=== PATIENT | male | born 1940 | race Caucasian/White ===

== ENCOUNTER 2020-08-20 05:13 | Inpatient (IN) ==
--- NOTE | 2020-07-16 12:11 | PAT Medication Instructions ---
Medication Instructions Date of Service July 16, 2020 Home Medications aspirin 81 mg PO QAM cholecalciferol (vitamin D3) [Vitamin D3] 25 mcg PO QAM enalapril maleate 10 mg PO QAM ASK your prescriber and surgeon aspirin 81 mg PO QAM DO NOT take the morning of surgery cholecalciferol (vitamin D3) [Vitamin D3] 25 mcg PO QAM enalapril maleate 10 mg PO QAM Other Notes If you have any questions please call us at [phone] or [phone] or [phone] or [phone]
--- NOTE | 2020-07-20 11:04 | Anesthesiology Consultation ---
Date of Service July 20, 2020 Assessment & Plan (1) Encounter for pre-operative examination: COVID screening: Per assessment on 07/20: Travel screen negative, no known COVID- 19 positive contacts or current COVID-19 related symptoms. Patient vaccinated. Surgeon arranging preop COVID testing (scheduled 08/18; [facility]). Awaiting results. Chart Review Chart Review: Acceptable Risk for Surgery and Patient seen in Pre Admission Testing Teaching & Discussion Pre-Anesthesia Teaching/Discussion Notes: Instructed NPO after midnight before surgery,except medications with 15 cc of water. Medication instructions provided according to the PAT guidelines. History Surgery Operation Date: 08/20/20 07:00 Proposed Procedures p Right Total Shoulder Arthroplasty Belle - Fredo Reaves M.D. Height/Weight Height: 5 ft 8 in Weight: 67.6 kg Allergies Allergy/AdvReac Type Severity Reaction Status Date / Time No Known Allergies Allergy Unverified 07/13/20 13:25 Medications Home Medications Medication Instructions Recorded Confirmed Last Taken aspirin 81 mg PO QAM 07/13/20 07/13/20 Unknown cholecalciferol (vitamin D3) 25 mcg PO QAM 07/13/20 07/13/20 Unknown [Vitamin D3] enalapril maleate 10 mg PO QAM 07/13/20 07/13/20 Unknown Past Medical History Medical History BPH with obstruction/lower urinary tract symptoms Hypertension Osteoarthritis Exercise / Class Metabolic Activity II 4-5 Yardwork/Stairs/Walk up hill (one flight of stairs (no chest pain, no sob)) Past Surgical History Surgical History History of left inguinal hernia left inguinal hernia repair History of total right hip arthroplasty and revision Hx of arthroscopy of left knee Hx of bilateral cataract extraction Hx of colonoscopy Past Anesthesia History No Hx of Anesthesia Complications and No Family Hx of Anesthesia Complications History of PONV No Hx of PONV and No Hx of Motion Sickness Social History Smoking Status: Never smoker Do You Dip or Chew Tobacco: No Hx Alcohol Use: Yes Alcohol type: beer alcohol intake frequency: a few times a month Hx Substance Use: No substance use type: does not use Review of Systems No snoring. Patient denies chest pain, shortness of breath, dyspnea on exertion, fever, chills, cough, wheezing, palpitations. Physical Exam Vital Signs VITALS BP 124/73 P 65 TEMP 98.7 SP02 95%RA RESP 16 PHYSICAL Full cervical extension range of motion. Full TMJ range of motion. TMD 4 finger breaths Mallampati Score 3 Dentition: upper/lower full dentures Lungs: clear throughout to auscultation Cardiac: regular rate and rhythm, I/ systolic murmur Spine: normal Carotid arteries: negative bruit Extremities: no edema Lab Results Anesthesia Preop Results Results Anesthesia Widget: WBC 4.87 K/uL (4.8-10.8) 07/20/20 Hgb 14.6 g/dL (14.0-18.0) 07/20/20 Hct 42.8 % (42-52) 07/20/20 Plt 172 K/uL (130-400) 07/20/20 Na 140 mmol/L (136-145) 07/20/20 K 4.2 mmol/L (3.5-5.1) 07/20/20 Cl 109 mmol/L (98-107) H 07/20/20 CO2 24 mmol/L (21-32) 07/20/20 BUN 18 mg/dl (7-18) 07/20/20 Creat 0.82 mg/dl (0.6-1.4) 07/20/20 Glucose Level 86 mg/dl (70-99) 07/20/20 PT 10.3 Seconds (9.0-12.0) 07/20/20 PTT 28.1 Seconds (21.0-31.0) 07/20/20 INR 1.0 (0.9-1.1) 07/20/20 HA1c 5.3 % (4.5-5.6) 07/20/20 Urine Color Yellow 07/20/20 Urine Appearance Cloudy (Clear) A 07/20/20 Urine pH 5.0 (4.5-7.5) 07/20/20 Urine Specific [place] 1.020 (1.000-1.030) 07/20/20 Urine Protein Negative (Negative) 07/20/20 Urine Glucose (UA) Negative (Negative) 07/20/20 Urine Ketones Negative (Negative) 07/20/20 Urine Blood Negative (Negative) 07/20/20 Urine Nitrite Negative (Negative) 07/20/20 Urine Bilirubin Negative (Negative) 07/20/20 Urine Urobilinogen Negative (Negative) 07/20/20 Urine Leukocyte Esterase 1+ (Negative) H 07/20/20 Urine WBC (Auto) 1-5 /hpf (0-5) 07/20/20 Urine RBC (Auto) 0-4 /hpf (0-4) 07/20/20 Urine Hyaline Casts (Auto) 1-5 /lpf (0-5) 07/20/20 Urine Epithelial Cells (Auto) 10-20 /lpf (0-5) H 07/20/20 Urine Bacteria (Auto) Negative (Negative) 07/20/20 Blood Type B Positive 07/20/20 Antibody Screen NEGATIVE 07/20/20 Testing Electrocardiogram Date: 07/20/20 Sinus bradycardia at 57 bpm. LAD. No significant change compared to 05/15/2014 per it administrator review. Chest X-Ray Date: 07/20/20 FINDINGS: Lung volumes are normal. Lungs are clear. There is no pneumothorax or pleural effusion. Cardiac size is normal. Mediastinal contours are normal. There is no evidence for pulmonary edema. IMPRESSION: No acute cardiopulmonary findings.
--- NOTE | 2020-08-19 08:01 | History & Physical Report ---
Date of Service August 19, 2020 Assessment & Plan (1) Primary osteoarthritis, right shoulder: He again has severe right shoulder glenohumeral joint arthritis. On x- ray, this does look like primary glenohumeral joint arthritis. However, he has a large full-thickness supraspinatus rotator cuff tear with retraction to the glenoid rim and fatty atrophy. He therefore will require a reverse total shoulder arthroplasty if he decides to proceed with this. We again discussed further conservative treatment with repeat steroid injections; these have been minimally effective for him in the recent past. He would like to proceed with shoulder joint replacement, and I think this is very reasonable. We will plan for a reverse total shoulder arthroplasty. Risks, benefits, and alternatives of surgery were explained in detail. The surgical procedure, as well as postoperative recovery and rehabilitation, was also explained in detail. Risks include bleeding; infection; damage to surrounding structures such as nerves, blood vessels, and tendons that run in the area; persistent pain or stiffness; hardware failure; dislocation; brachial plexus palsy; blood clots; or need for further surgery. The patient understands all of this and wishes to proceed with surgery. Preoperative workup was completed today, and informed consent was obtained. History of Present Illness Primary Care Provider: Diallo Atwood MD Mr. Gutiérrez returns today for his right shoulder. Again, he is a 80-year-old [id number] male with chronic right shoulder pain. He was referred over from Dr. Ramos's team. He had previously seen Dr. Duval for this right shoulder prior to that. Multiple previous clinic notes from these providers were reviewed. He reports overall that he has had about 5 years of right shoulder pain with progressive worsening. He previously had a right shoulder steroid injection by Dr. Duval about 4 years ago that worked very well. He then had 2 more recent injections from [facility], one in October 2019 and one more recently on April 09, 2020. He reports that neither 1 of these last 2 injections gave him any relief of his pain. This pain is now waking him up at night. It is severely impacting his activities of daily living. He has severe pain and some weakness with any attempts at motion or abduction of the shoulder. Allergies Allergy/AdvReac Type Severity Reaction Status Date / Time No Known Allergies Allergy Unverified 07/13/20 13:25 Home Medications Medication Instructions Recorded Confirmed Type aspirin 81 mg tablet 81 mg PO QAM 07/13/20 07/13/20 History cholecalciferol (vitamin D3) 25 25 mcg PO QAM 07/13/20 07/13/20 History mcg (1,000 unit) tablet (Vitamin D3) enalapril maleate 10 mg tablet 10 mg PO QAM 07/13/20 07/13/20 History Past Med/Surg History Medical History BPH with obstruction/lower urinary tract symptoms Hypertension Osteoarthritis Surgical History History of left inguinal hernia left inguinal hernia repair History of total right hip arthroplasty and revision Hx of arthroscopy of left knee Hx of bilateral cataract extraction Hx of colonoscopy Social History Smoking Status: Never smoker Second Hand Exposure: No; Hx Alcohol Use: Yes Alcohol type: beer Hx Substance Use: No Preferred Language: Italian Communication Ability: Effective Etiquette Coach Required: No Beliefs That Will Affect Care: None Current Living Situation: Spouse Feels Safe at Home: Yes Assistive Devices: Denture - Upper, Glasses and Hearing Aid - Left Physical Exam Physical Exam: Examination of the right shoulder shows moderate limitation in shoulder range of motion due to pain, with palpable crepitus during motion. He can only actively abduct up to about 95 degrees at this point. Rotator cuff strength is globally weak. Results & Data ([facility]) Diagnostic Findings Previous x-rays of the right shoulder from September 2019 and April 2020 were reviewed. They shows severe arthritic degeneration of the glenohumeral joint with basically complete obliteration of the joint space. It shows progressive worsening from the September 2019 to the April 2020 x-rays. There is significant posterior wear of the glenoid. They are also concerning for some proximal migration of the humeral head. New MRI of the right shoulder from this morning was reviewed. It shows a full- thickness supraspinatus rotator cuff tear with retraction of the tendon edge to the glenoid rim. There is moderate atrophy of the supraspinatus muscle belly. Again noted is severe glenohumeral joint arthritis.
[2020-08-20] MEDS ORDERED: GABAPENTIN 300 MG CAP PO SCH (06:00)
[2020-08-20] MEDS ORDERED: CeleBREX 200 MG CAP PO SCH (06:00)
[2020-08-20] MEDS ORDERED: FAMOTIDINE 20 MG TAB PO SCH (06:00)
[2020-08-20] MEDS ORDERED: LR 15ML/HR IV SCH (06:00)
[2020-08-20] MEDS ORDERED: oxyCODONE HCL 10 MG TABCR (OxyCONTIN) PO SCH (06:00)
[2020-08-20] MEDS ORDERED: TRANEXAMIC ACID 1,000 MG **IV Pre-op IV SCH (06:00)
[2020-08-20] MEDS ORDERED: ACETAMINOPHEN 500 MG TAB PO SCH (06:00)
[2020-08-20] MEDS ORDERED: METOCLOPRAMIDE HCL 10 MG TABLET PO SCH (06:00)
[2020-08-20] MEDS ORDERED: ceFAZolin 1000MG 1,000 MG/7.5 ML SYR IV SCH (06:00)
[2020-08-20] MEDS ORDERED: BUPIVACAINE 0.5 % 5 MG/1 ML PF 10ML VIAL ONE (06:21)
[2020-08-20] MEDS ORDERED: fentaNYL citrate 100 MCG/2 ML VIAL ONE (06:36)
[2020-08-20] MEDS ORDERED: ONDANSETRON INJ 2 MG/ML 2 ML VIAL ONE (06:36)
[2020-08-20] MEDS ORDERED: PROPOFOL IV EMULSION 10 MG/ML 20 ML VIAL IV ONE (06:36)
[2020-08-20] MEDS ORDERED: MIDAZOLAM HCL 1 MG/ML 2ML VIAL ONE (06:36)
[2020-08-20] MEDS ORDERED: LIDOCAINE 2% 2 ML VIAL/AMP(20MG/ML) INFIL ONE (06:36)
[2020-08-20] MEDS ORDERED: DEXAMETHASONE SOD INJ 4 MG/ML VIAL ONE (06:36)
--- NOTE | 2020-08-20 07:00 | History & Physical Bridge Note ---
Date of Service August 20, 2020 History & Physical Bridge Note I have examined the patient, reviewed the History & Physical and in the interval since the performance of the History & Physical I have noted the following changes of clinical significance: no changes noted
[2020-08-20] MEDS ORDERED: fentaNYL citrate 100 MCG/2 ML VIAL IV PRN (07:05)
[2020-08-20] MEDS ORDERED: ePHEDrine sulfate 50 MG/ML AMP IV PRN (07:05)
[2020-08-20] MEDS ORDERED: ATROPINE SULFATE 0.1 MG/ML 10ML SYR IV PRN (07:05)
[2020-08-20] MEDS ORDERED: HYDROmorphone INJ 2 MG/ML SYR/VIAL IV PRN (07:05)
[2020-08-20] MEDS ORDERED: ceFAZolin 1000MG 1,000 MG/7.5 ML SYR IV ONE (07:55)
[2020-08-20] MEDS ORDERED: PHENYLEPHRINE 100MCG/ML 5ML SYR ONE (07:59)
[2020-08-20] MEDS ORDERED: ePHEDrine sulfate 50 MG/ML SYR ONE (07:59)
--- NOTE | 2020-08-20 08:58 | Post Operative Brief Note ---
Immediate Post Op Note v1 Date of Surgery August 20, 2020 Pre & Post Diagnosis Operation Date: 08/20/20 07:00 Pre-Op Diagnosis: Right shoulder osteoarthrits with rotator cuff tear Post-Op Diagnosis: Right shoulder osteoarthrits with rotator cuff tear I identified the patient and participated in the time-out.: Yes Procedure Operation Date: 08/20/20 07:00 Actual Procedures Right reverse total shoulder arthroplasty - Fredo Reaves M.D. Surgeon Fredo Reaves Group Worker Michael Arias PA-C Estimated Blood Loss 100 Findings Consistent with Post-Op Diagnosis
--- NOTE | 2020-08-20 09:11 | Operative Report ---
Post Operative Report Pre & Post Diagnosis Operation Date: 08/20/20 07:00 Pre-Op Diagnosis: Right shoulder osteoarthritis with rotator cuff tear Post-Op Diagnosis: Right shoulder osteoarthritis with rotator cuff tear I identified the patient and participated in the time-out.: Yes Procedure Operation Date: 08/20/20 07:00 Actual Procedures Right reverse total shoulder arthroplasty (42022) - Fredo Reaves M.D. Surgeon Fredo Reaves Proof Sorter Michael Arias PA-C Estimated Blood Loss 100 Findings Consistent with Post-Op Diagnosis Specimens None Drains None Anesthesia Type General Regional Complications none Disposition Disposition: Recovery Room Indications Mr. Gutiérrez is a 80-year-old male with severe right shoulder pain and weakness for many years. History, clinical exam, and imaging were consistent with the above diagnosis. Risks, benefits, and alternatives of surgery were explained in detail. The patient understood all this and wished to proceed. Description of Procedure Components Implanted: Tornier Reverse Total Shoulder implants Perform glenoid baseplate: 29mm, 15 degree full wedge with 6.5mm central screw and 5.0mm peripheral screws Glenosphere: 39mm, +3mm, eccentric offset Ascend Flex humeral stem: 6B Standard length (86mm) Humeral tray: 1.5mm offset, +0mm thickness Polyethylene insert: 39mm, +6mm thickness Patient was identified in the preoperative holding area. Operative extremity was marked. Regional blockade was given by the Anesthesia Staff. Patient was then brought back to the operating room, and general anesthesia was induced without complication. Appropriate weight-based dose of Ancef was infused intravenously for antibiotic prophylaxis. The patient was then placed in the b eachchair position. Right arm was then prepped and draped in a standard sterile fashion using Chlorhexidine prep. A standard deltopectoral incision was made through the skin and subcutaneous tissue. The cephalic vein was identified and retracted medially. Small branches to the deltoid were coagulated as necessary. The clavipectoral fascia was then incised and the subdeltoid space was opened. The rotator cuff was found to be deficient, and I therefore decided to perform a reverse total shoulder arthroplasty as planned preoperatively. The biceps tendon was not identified within the bicipital groove, and appeared to have ruptured preoperatively. The remaining subscapularis tendon was elevated subperiosteally off of the lesser tuberosity. The glenohumeral joint was then dislocated, and large osteophytes were debrided with a ronguer. The humeral head cut was then made in the appropriate inclination and version using the cutting guide. The intramedullary canal of the humerus was then opened with a canal finder. The humeral canal was then sequentially broached to the appropriate size. A protective cap was then placed on top of the humeral trial. I then turned my attention to the glenoid. The labrum was excised circumferentially around the glenoid. The Blueprint drill guide was then positioned on the glenoid, and the guidepin was then inserted. The 15 degree angled reamer was then inserted over the guidepin and an reamed to an appropriate depth. The central screw hole was drilled, and appropriate length 6.5mm central screw was selected. The baseplate was then implanted into place according to our preoperative Blueprint plan by tightening down the central screw. A peripheral 5mm nonlocking screw was placed superiorly first for additional compression of the baseplate, and then additional locking 5 mm peripheral screws were placed to complete fixation of the baseplate. Glenosphere was then impacted and secured. A trial humeral tray and insert were placed on the trial humeral stem, and a trial reduction was carried out. Once I achieved acceptable joint stability and range of motion with the trial implants, the final humeral implants were assembled on the back table and then impacted into position. I then took the shoulder through full range of motion to ensure good stability and acceptable motion. Wound was then copiously irrigated with sterile saline. Deep fascia was closed with 0 V-lock suture. Subcutaneous tissue was closed with 2-0 V-lock, and skin was closed with 3-0 V-lock. Skin was then sealed with Dermabond. Sterile dressings were then applied with a waterproof silver-impregnated dressing, and the arm was placed into a sling. The patient was awakened from anesthesia and taken to the Post Anesthesia Care Unit in stable condition. There were no immediate complications from the procedure. I was present and scrubbed for the entire procedure, with the exception of final skin closure and dressing application. Due to the complex nature of the procedure, the entire surgery was performed with the operational assistance of Michael Arias PA-C. The sales service assistant, under direct supervision, was involved in the performance of all aspects of the surgical procedure including patient positioning, tissue retraction, hemostasis, wound closure, and dressing application. I attest to the content of the Intraoperative Record and any orders documented therein. Any exceptions are noted below.
--- NOTE | 2020-08-20 09:46 | XRay Report ---
XR shoulder RT min 2V routine CLINICAL HISTORY: Post shoulder surgery COMPARISON: None FINDINGS: Alignment of the total right shoulder arthroplasty is anatomic. There is no definite perip rosthetic fracture. Lucency adjacent to the distal aspect of the humeral component is noted. There ar e no unexpected radiopaque foreign bodies. Hardware is intact. IMPRESSION: 1. Status post total right shoulder arthroplasty. Hardware intact. No unexpected radiopaque foreign b odies. 2. Lucency adjacent to the distal aspect of the humeral component. This likely reflects a vascular ch eros or artifact. A nondisplaced fracture is considered less likely. Short-term follow-up radiograph s could be obtained. ACT 112: Negative or not required by law. Electronically signed by: Alon Castaneda M.D. 08/20/2020 9:44 AM
--- NOTE | 2020-08-20 10:26 | Anesthesiology Progress Note ---
Date of Service August 20, 2020 Anesthesia Post Procedure Vital Signs Vital Signs: Temp Pulse Pulse Resp BP Pulse Ox 08/20/20 10:15 73 16 139/80 95 08/20/20 10:05 36.4 C L 67 18 129/67 94 08/20/20 09:55 81 20 129/76 93 08/20/20 09:45 74 14 139/82 97 08/20/20 09:35 75 18 147/92 H 97 08/20/20 09:25 76 12 162/89 H 99 08/20/20 09:18 36.2 C L 78 13 149/66 H 97 08/20/20 05:47 36.8 C 71 18 179/87 H 97 Transfer of Care Handoff Completed per policy Notes Mental Status: alert / awake / arousable and participated in evaluation Patient Amnestic to Procedure: Yes Nausea / Vomiting: adequately controlled Pain: adequately controlled Airway Patency, RR, SpO2: stable & adequate BP & HR: stable & adequate Hydration State: stable & adequate Anesthetic Complications: no major complications apparent and Pt Satisfied with anesthetic care
[2020-08-20] MEDS ORDERED: SODIUM CHLORIDE 0.9% 1000ML 1,000 ML IV SCH (10:32)
[2020-08-20] MEDS ORDERED: NALOXONE HCL 0.4 MG/1 ML VIAL/CARP IV PRN (10:32)
[2020-08-20] MEDS ORDERED: ONDANSETRON INJ 2 MG/ML 2 ML VIAL IV PRN (10:32)
[2020-08-20] MEDS ORDERED: oxyCODONE HCL IR 5 MG TAB (IMMEDIATE RELEASE) PO PRN (10:32)
[2020-08-20] MEDS ORDERED: METOCLOPRAMIDE HCL INJ 5 MG/ML 2 ML VIAL IV PRN (10:32)
[2020-08-20] MEDS ORDERED: MAGNESIUM HYDROXIDE SUSP 30 ML UDC PO PRN (10:32)
[2020-08-20] MEDS ORDERED: bisacodyL 10 MG SUPP PR PRN (10:32)
--- NOTE | 2020-08-20 11:40 | Hospitalist Consultation ---
Date of Consultation August 20, 2020 Assessment & Plan (1) Primary osteoarthritis, right shoulder: post op management as per Ortho pain control, bowel regimen PT/OT CBC, BMP in AM (2) BPH with obstruction/lower urinary tract symptoms: not on meds watch for urinary retention (3) Hypertension: BPs controlled hold home enalapril until renal function and BP checked in AM (4) DVT prophylaxis: Aspirin 325mg po daily, SCDs Dispo-continued stay, hospitalist service will follow along History of Present Illness Reason for Consultation: Post op medical management Requesting Physician: Dr. Reaves Attending Physician: Fredo Reaves History of Present Illness This pt is a 80 yo male with a h/o HTN, HL, BPH, and OA, here s/p Right reverse TSA. He feels well so far post-op. Denies any CP, SOB, nausea, abd pain. Last BM was yesterday. He sometimes has trouble getting his urine out but doesn't take medication for this. Allergies Allergy/AdvReac Type Severity Reaction Status Date / Time No Known Allergies Allergy Verified 08/20/20 05:41 Home Medications Medication Instructions Recorded Confirmed Type aspirin 81 mg tablet 81 mg PO QAM 07/13/20 08/20/20 History cholecalciferol (vitamin D3) 25 25 mcg PO QAM 07/13/20 08/20/20 History mcg (1,000 unit) tablet (Vitamin D3) enalapril maleate 10 mg tablet 10 mg PO QAM 07/13/20 08/20/20 History Patient History Medical History BPH with obstruction/lower urinary tract symptoms Hypertension Hypertension Osteoarthritis Sebaceous cyst Surgical History History of left inguinal hernia left inguinal hernia repair History of total right hip arthroplasty and revision Hx of arthroscopy of left knee Hx of bilateral cataract extraction Hx of colonoscopy Social History Smoking Status: Never smoker Second Hand Exposure: No; Do You Dip or Chew Tobacco: No; Hx Alcohol Use: Yes Alcohol type: beer Hx Substance Use: No Preferred Language: Yi Communication Ability: Effective Healthcare Technician Required: No Beliefs That Will Affect Care: None Current Living Situation: Spouse Other Information That Helps Us Care for You: No Feels Safe at Home: Yes Safety Concerns: Feels Safe At This Time Assistive Devices: Denture - Upper, Glasses and Hearing Aid - Left Review of Systems Review of Systems: All systems reviewed & are unremarkable except as noted in HPI & below Physical Exam Constitutional: WD/WN, vitals as above Eyes: + anicteric sclerae ENMT: external ear and nose normal, oropharynx normal Neck: trachea midline, no thyromegaly Respiratory: normal respiratory effort, lungs clear to auscultation Cardiovascular: RRR, no murmur, no edema Chest (Breasts): Chest: normal inspection of chest Gastrointestinal (Abdomen): normal bowel sounds, soft, nontender, no hepatosplenomegaly Musculoskeletal: Extremities: + extremities abnormal to inspection (RUE in sling), no cyanosis and no clubbing Skin: no rashes, warm and dry Neurologic: moves all extremities and awake; no focal motor deficits Psychiatric: A+Ox3, euthymic affect Lymphatic: no lymphedema Results & Data Results & Data ([facility]) Vital Signs (Past 12 Hours) Vital Signs Temp Pulse Pulse Resp BP Pulse Ox 08/20/20 11:02 36.4 C L 70 16 136/86 95 08/20/20 10:46 36.4 C L 70 16 131/79 95 08/20/20 10:15 73 16 139/80 95 08/20/20 10:05 36.4 C L 67 18 129/67 94 08/20/20 09:55 81 20 129/76 93 08/20/20 09:45 74 14 139/82 97 08/20/20 09:35 75 18 147/92 H 97 08/20/20 09:25 76 12 162/89 H 99 08/20/20 09:18 36.2 C L 78 13 149/66 H 97 08/20/20 05:47 36.8 C 71 18 179/87 H 97 Laboratory Results 08/20/20 08/20/20 Range/Units 05:40 05:40 COVID-19 Eval Order Covid19 [facility] SARS-CoV-2, RNA, NAAT NEGATIVE (NEGATIVE) Preop labs reviewed and normal Diagnostic Findings preop CXR reviewed and negative PG Care Time/CCT Total # of Minutes Spent Total Time Spent with Patient: Total time spent is greater than 50% in coordination of care (as documented) at patient's floor/unit and/or counseling patient: Coding Level of Care Code 49603 Inpt Consult Level 2 Diagnoses Primary osteoarthritis, right shoulder M19.011 BPH with obstruction/lower urinary tract symptoms N40.1; N13.8 Hypertension I10 DVT prophylaxis Z29.9
[2020-08-20] MEDS: ACETAMINOPHEN 500 MG TAB PO SCH ×3 (12:15→23:18)
[2020-08-20] MEDS: IBUPROFEN 600 MG TAB PO SCH ×3 (12:15→23:18)
[2020-08-20] MEDS: ceFAZolin 2000MG 2,000 MG/15 ML SYR IV SCH ×2 (16:08→23:18)
[2020-08-20] MEDS: DOCUSATE SODIUM 100 MG CAP PO SCH (20:50)
[2020-08-20] MEDS ORDERED: SENNA 8.6 MG TAB PO SCH (21:00)
[2020-08-21] MEDS: ACETAMINOPHEN 500 MG TAB PO SCH ×2 (05:14→12:14)
[2020-08-21] MEDS: IBUPROFEN 600 MG TAB PO SCH ×2 (05:14→12:14)
[2020-08-21] MEDS: DOCUSATE SODIUM 100 MG CAP PO SCH (07:42)
[2020-08-21] MEDS ORDERED: MULTIVITAMIN TAB PO SCH (09:00)
[2020-08-21] MEDS ORDERED: ASPIRIN 325 MG ECTAB PO SCH ×2 (09:00)
[2020-08-21] MEDS ORDERED: ENALAPRIL MALEATE 10 MG TAB PO SCH (09:00)
[2020-08-21] MEDS ORDERED: CHOLECALCIFEROL 1,000 UNITS 25 MCG TAB PO SCH (09:00)
[2020-08-21 09:16] LABS: Basophils # (auto) 0.01 K/uL (0-0.2); Basophils % (auto) 0.1 %; Eosinophils # (auto) 0.07 K/uL (0-0.5); Eosinophils % (auto) 0.8 %; Hematocrit (blood only) 39.2 % (42-52); Hemoglobin 12.7 g/dL (14.0-18.0); Immature Granulocytes # (auto) 0.08 K/uL (0.00-0.02); Immature Granulocytes % (auto) 0.9 %; Lymphocytes # (auto) 1.33 K/uL (1.2-3.4); Lymphocytes % (auto) 15.4 %; Mean Corpuscular Hgb Conc 32.4 g/dL (32-36); Mean Corpuscular Volume 95.6 fL (80-100); Mean Platelet Volume 10.2 fL (7.4-10.4); Monocytes # (auto) 1.11 K/uL (0.11-0.59); Monocytes % (auto) 12.9 %; Neutrophils # (auto) 6.02 K/uL (1.4-6.5); Neutrophils % (auto) 69.9 %; Platelet Count 169 K/uL (130-400); RDW Coefficient of Variation 13.1 % (11.5-14.5); RDW Standard Deviation 45.8 fL (36.4-46.3); White Blood Count 8.62 K/uL (4.8-10.8)
[2020-08-21 09:51] LABS: BUN Creatinine Ratio 25.8 (10-20); Calcium 8.4 mg/dl (8.5-10.1); Creatinine Clr Calc Pharmacy 62.2 ml/min; Est GFR (African American) 90.2 ml/min; Est GFR (Non-African American) 77.8 ml/min; Potassium 3.9 mmol/L (3.5-5.1)
--- NOTE | 2020-08-21 12:14 | Orthopedic Progress Note ---
Date of Service August 21, 2020 Assessment & Plan (1) Primary osteoarthritis, right shoulder: Plan: Postop day #1 status post Right reverse total shoulder arthroplasty PT/OT Sling to right upper extremity over the next 6 weeks. DVT prophylaxisaspirin 325 mg Silverlon dressing to stay in place for 7 days. Discharge planningplan for discharge home today with outpatient therapy. Admission and Anticipated Discharge Date Admission Date: August 20, 2020 Subjective Doing well. States that his pain is controlled in the shoulder. He has good sensation in the right upper extremity with exception of some residual numbness in his thumb. Denies chest pain, shortness of breath, lightheadedness. Physical Exam Constitutional: WD/WN, vitals as above Musculoskeletal: Shoulder: + surgical incision (Right anterior shoulder with Silverlon dressing in place); no skin erythema, no ecchymosis and no surgical drain present Psychiatric: A+Ox3, euthymic affect Speech: normal rate/rhythm/volume of speech Results & Data ([facility]) Vital Signs (Past 12 Hours) Vital Signs Temp Pulse Resp BP Pulse Ox 08/21/20 07:50 36.6 C 64 16 145/76 H 94 08/21/20 01:49 36.9 C 67 14 104/61 95
--- NOTE | 2020-08-21 17:20 | Discharge Summary ---
Date of Service August 21, 2020 Admission HPI Per Admitting Provider Mr. Gutiérrez returns today for his right shoulder. Again, he is a 80-year-old [id number] male with chronic right shoulder pain. He was referred over from Dr. Ramos's team. He had previously seen Dr. Duval for this right shoulder prior to that. Multiple previous clinic notes from these providers were reviewed. He reports overall that he has had about 5 years of right shoulder pain with progressive worsening. He previously had a right shoulder steroid injection by Dr. Duval about 4 years ago that worked very well. He then had 2 more recent injections from [facility], one in October 2019 and one more recently on April 09, 2020. He reports that neither 1 of these last 2 injections gave him any relief of his pain. This pain is now waking him up at night. It is severely impacting his activities of daily living. He has severe pain and some weakness with any attempts at motion or abduction of the shoulder. Admission Exam Per Admitting Provider Examination of the right shoulder shows moderate limitation in shoulder range of motion due to pain, with palpable crepitus during motion. He can only actively abduct up to about 95 degrees at this point. Rotator cuff strength is globally weak. 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 Ordered Studies 08/20/20 05:00 US - OR guided needle placemen Routine Hospital Course (1) Primary osteoarthritis, right shoulder: Patient underwent a right reverse total shoulder arthroplasty on the date of admission. Patient tolerated the procedure well and was transferred up to the general orthopedic surgery floor in stable condition. Perioperative antibiotic coverage was initiated, and continued for 24 hours postoperatively. DVT prophylaxis was initiated consisting of SCDs and aspirin 325 mg daily. Perioperative pain control regimen was transitioned to strictly oral pain medications by postoperative day 1. On postoperative day 1 the patient was do ing very well. Pain was well controlled, and patient was mobilizing well with therapy. Patient was determined be safe and ready for discharge to home. Total Time Total Time Spent Total Time Spent (In Minutes): 15 Discharge Plan Discharge Items Patient Disposition: Home - Self-Care Reason For Visit: Osteoarthrits, Right Shoulder Discharge Diagnosis: Right shoulder osteoarthritis with rotator cuff tear Activity: Per Instructions section Non-emergency contact: Surgeon Call non-emergency contact if: your pain is not controlled, your temperature is above 101.5, your wound has increased redness and your wound has increased drainage Follow-up/Referrals: Fredo Reaves M.D. [Physician] - Diallo Atwood MD [Primary Care Provider] - Diet: Regular Addtl Attending Provider Instructions: Things to Watch Out For -Go to the Emergency Room if you have sudden onset of nausea, vomiting, chest pain, shortness of breath, or uncontrollable pain. -Call the clinic or go to the Emergency Room if you have a sudden increase in the amount of wound drainage or the drainage becomes thick, yellow or green, or foul-smelling. -For routine questions, call the clinic at [phone] during regular business hours (8am-5pm). For urgent issues after regular business hours, you may call the clinic to be connected to the on-call physician. Dressings -A special waterproof, silver-impregnated dressing was placed on your shoulder. Keep this dressing in place for 1 week after surgery. You may shower with the waterproof dressing in place, but do not soak the dressing in the bathtub or pool. -One week after surgery, you may remove the waterproof dressing. You may continue to shower, and let water run BRIEFLY over the incision, but do not soak the incision in the bathtub or pool for 2 weeks. You may also gently clean the incision with mild soap and water; pat the incision dry after cleaning-do not rub the incision. Apply a new dressing daily thereafter. Shoulder Exercises -Keep your operative shoulder in the sling for comfort, except as detailed below. -You should come out of the sling 4-5 times a day for passive pendulum exercises: lean over and swing your arm in a circular pattern. -You should also do active-assisted forward flexion exercises: use your opposite hand to lift your operative arm forward to 90 degrees. -Do not use your arm to push yourself up out of bed or up from a seated position. Ice Pack -You may use an ice pack for pain relief. You should use it 20-30 minutes at a time. Place a towel between the ice pack and your skin to prevent frostbite. -You should use the ice pack fairly regularly for the first 1-2 weeks after surgery to help reduce pain and inflammation. -About 2 weeks after your surgery, you should start using heat to loosen up your shoulder prior to doing your stretching exercises, then use the cooling sleeve after your exercises are complete to reduce swelling and pain. Pain Medicines -Your prescriptions for pain medications have already been sent to the pharmacy on file at [facility]. -You have been prescribed an anti-inflammatory (Motrin/ibuprofen) and a non- narcotic pain medicine (Tylenol/acetaminophen). These are your primary pain medications. Take them each every 6 hours as instructed. It is recommended that you stagger these medicines every 3 hours (i.e. take ibuprofen at 8:00 am, then acetaminophen at 11:00 am, then ibuprofen at 2:00 pm, etc) -DO NOT take any additional anti-inflammatories (Advil, Aleve/naproxen, Mobic/meloxicam, Celebrex) or any additional Tylenol/acetaminophen products with these prescribed medications. -You have also been prescribed an additional narcotic pain medication (oxycod one). Take this medicine ONLY for breakthrough pain not controlled by the ibuprofen and acetaminophen. -Do not drive or operate heavy machinery while taking the narcotic medication. -Common side effects of narcotic pain medicines include itching, nausea, constipation, and feeling "loopy". However, if you develop a rash or hives, stop taking the medicine and call the clinic. If you develop swelling in your throat or difficulty breathing, go to the Emergency Room or call 911 IMMEDIATELY. -You may take over the counter stool softeners if needed for constipation. Aspirin -Take a full strength (325mg) aspirin every day for 4 weeks (28 days) to prevent blood clots. -If you were taking a baby aspirin (81mg) prior to surgery, you may resume taking this 81mg dose after you complete the 28-day course of the 325mg strength dose; do not take the 325mg dose in addition to your 81mg dose. -Be aware that you will bruise easier while taking Aspirin; this is normal. However, if you develop a significantly large area of swelling after an injury, or have a cut that will not stop bleeding, call the clinic or go to the Emergency Room immediately. Pending Studies at Discharge: No Stand-Alone Forms: [facility], Opioid Pain Management, Work/School Release, Smoking Cessation Medications and DC Order Prescriptions: Continued enalapril maleate 10 mg Tablet 10 mg PO QAM RF: 0 cholecalciferol (vitamin D3) [Vitamin D3] 25 mcg (1,000 unit) Tablet 25 mcg PO QAM RF: 0 Discontinued aspirin 81 mg Tablet 81 mg PO QAM RF: 0 Discharge Orders: Discharge Order (Routine); Ordered 08/21/20 Ordered By: Osiel Araujo Admission Data Admit Date/Time: 08/20/20 09:22 Attending Provider: Fredo Reaves Admit Provider: Fredo Reaves Primary Care Provider: Diallo Atwood Other Providers: Dimple Godoy ; Elie Sauer Other Interventions: Discharge Summary Assessment (RN) Last Done: 08/21/20 13:24
== END 2020-08-21 14:05 | disposition home or self-care (01) | DRG 483 ==
LOC: ASU 05:13 → 3E 09:22